=== PATIENT | male | born 1940 | race Caucasian/White ===

== ENCOUNTER → 2024-03-26 10:05 | Outpatient (REF) | payer OTHER, SELFPAY | LOC: RCS 10:05 | PROVIDERS: ATTENDING PHYSICIAN Internal Medicine Cardiovascular Disease; FAMILY PHYSICIAN Family Medicine; REFERRING PHYSICIAN Internal Medicine Cardiovascular Disease | DX: I48.21 Permanent atrial fibrillation (principal) | CPT/HCPCS: 93306 ==

== ENCOUNTER 2024-09-28 13:03 | Emergency (ER) | payer OTHER, SELFPAY ==
[2024-09-28 13:07] VITALS: BP 181/91
--- NOTE | 2024-09-28 14:37 | ED.GENMED ---
History of Present Illness
General
Chief Complaint: Male Genito-Urinary Symptoms
Source: patient
Exam Limitations: none
Time Seen by Provider: 09/28/24 14:13
Nursing documentation reviewed up to this point in time: agreed with
History of Present Illness
History of Present Illness:
Patient is an 84-year-old male on Eliquis for A-fib presents to the ER for hematuria. Patient reports 1 hour prior to arrival he urinated blood in the toilet spontaneously. He had no dysuria. No blood clots.
He denies any abdominal pain nausea vomiting fever chills back pain.
He has no prior history of hematuria.
He does have a urologist he follows at [place].
Past History
Past History
ED Past Medical History: None
ED Past Surgical History: Urological
Social History
Tobacco: Non-smoker
Alcohol: Daily
Personal:
Living: with family
Employment: Retired
Review of Systems
Review of Systems
Allergies reviewed?: Yes
All Other Systems: ROS reviewed and negative except as documented in HPI and ROS
Constitutional: Reports no symptoms; Denies fever, fatigue or chills
Respiratory: Reports no symptoms
Cardiac: Reports no symptoms
ABD/GI: Reports no symptoms
: Reports bleeding; Denies frequency or difficulty voiding
Musculoskeletal: Reports no symptoms
Skin: Reports no symptoms
Neurological: Reports no symptoms
Psychiatric: Reports no symptoms
Phy Exam
General Physical Exam
General Presentation: no apparent distress
General age: appears stated age
General Skin: warm and dry
General Habitus: normal
General Mental: alert
General Hydration: appears well hydrated
Cardiovascular Exam
Cardiovascular Exam: regular rate/rhythm, no murmur and normal peripheral pulses
Pulmonary Exam
Pulmonary Exam: lungs clear and no respiratory distress
Gastrointestinal Exam
Gastrointestinal Exam: non tender and soft
Neurological Exam
Neurological Exam: alert and oriented x3
Musculoskeletal Exam
Musculoskeletal Exam: full ROM
Skin Exam
Skin Exam: normal color and warm/dry
Psychiatric Exam
Psychiatric Exam: normal mood/affect
Course
Orders/Labs/Results
Orders:
Orders
09/28/24 14:35
Urinalysis Reflex To Culture Urgent
Date Specimen was Collected: 09/28/24
Time Specimen was Collected: 14:34
Urine Microscopic Reflex Cult Urgent
09/28/24 14:47
IV Insert/Care/Rem.- Treatment PRN
09/28/24 15:05
Complete Blood Count/With Diff Urgent
Comprehensive Metabolic Panel Urgent
09/28/24 17:37
UA Reflex to Culture [Urinalysis Reflex To Culture] Urgent
Date Specimen was Collected: 09/28/24
Time Specimen was Collected: 17:35
Urine Microscopic Reflex Cult Urgent
Urine Culture Urgent
FADUMO Source: U
Specimen Description:
Date Specimen was Collected: 09/28/24
Time Specimen was Collected: 17:35
Abnormal Lab Results
09/28/24 09/28/24 09/28/24
14:35 15:05 17:37
WBC 4.6 L 10^3/uL
(4.8-10.8)
RBC 4.31 L 10^6/uL
(4.70-6.10)
MCH 31.8 H pg
(27.0-31.0)
Absolute Lymphs (auto) 0.9 L 10^3/uL
(1.2-3.4)
Lymphocytes % 18.8 L %
(20.5-51.1)
Total Bilirubin 1.5 H mg/dl
(0.2-1.3)
Ur Occult Blood Reflex 4+ A 4+ A
(Negative) (Negative)
Leukocyte Esterase Rfl 1+ A
(Negative)
Urine RBC >100 A /HPF >100 A /HPF
(0-2) (0-2)
Urine Bacteria (Reflex) Few A
(Negative)
Urine Albumin (Reflex) 4+ A 3+ A
(Neg - Trace) (Neg - Trace)
09/28/24 15:05
09/28/24 15:05
Vital Signs
Initial and Last Documented VS:
Initial Vital Signs
Temp Pulse Resp BP Pulse Ox
98.3 F 70 16 181/91 98
09/28/24 13:07 09/28/24 13:07 09/28/24 13:07 09/28/24 13:07 09/28/24 13:07
Last Documented Vital Signs
Temp Pulse Resp BP Pulse Ox
98.1 F 61 18 122/69 98
09/28/24 15:13 09/28/24 15:13 09/28/24 15:13 09/28/24 17:00 09/28/24 17:15
Kettle Worker consulted with Physician
Kettle Worker consulted with physician?: Yes
Name of Physician Consulted: Dr Cooper
MDM/Problems Addressed
Differential Diagnosis Includes:
Not limited to hematuria, UTI
MDM/Problems Addressed:
Patient is an 84-year-old male on Eliquis for A-fib presenting for hematuria. He reports hematuria started today no clots. He had no dysuria abdominal pain nausea vomiting back pain fever chills. Patient is well-appearing on exam.
White blood cell count is 4.6 hemoglobin is stable patient is afebrile normal kidney function.
Patient's hematuria has improved since he has been here .
He is well appearing and has no complaints of urinating. 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
since hematuria is improving, we will have patient continue Eliquis however prompt follow-up by his urologist at [place]. I did review with patient to return if any worsening of symptoms.
will send repeat urine since urine has improved to ensure no infection we will hold off on antibiotics at this time
*Pulse Oximetry
Patient hypoxic: no
*Critical Care Note
Total Time (30-74mins, 75-104mins- exclusive of procedures): Not Applicable
ED Attending Note
-
Portions of this chart may have been created with voice recognition software.� Occasional wrong word or��sound alike� substitutions may have occurred due to the inherent limitations of voice recognition software.
Discharge Plan
Departure
Patient Disposition: Home (Routine Discharge)
Date of Disposition: 09/28/24
Time of Disposition: 17:36
Patient with high blood pressure during this ER visit?: Yes
Condition: Fair
Covid-19: Not Applicable
Discharge Problem:
Hematuria
Instructions: Blood in the Urine (Hematuria), Adult (DC), BLOOD PRESSURE
Prescriptions:
No Action
Eliquis 5 MG tablet
5 mg PO BID Qty: 60 0RF
diltiazem HCl 180 mg Capsule,Extended Release 24hr
180 mg PO DAILY
triamcinolone acetonide 0.1 % Cream
1 applic TOPICAL DAILY
Patient Comments:
09/28/24: Apply to the back. Patient takes 2 weeks on and 1 week off. Currently is on the on week.
lisinopril 10 mg Tablet
10 mg PO HS
azelastine 137 mcg (0.1 %) [place],Non-Aerosol
1 spray INTRANASAL DAILY
fluticasone propionate 50 mcg/actuation [place],Suspension
1 spray INTRANASAL DAILY
Metamucil 3.4 gram/5.4 gram Powder
2 tsp PO DAILY
Referrals:
Bandar Cruz DO [Family Provider] -
Activity Restrictions/Additional Instructions:
Please follow-up with your urologist in the next several days call Tuesday to make an appointment. Stay well-hydrated. You may continue Eliquis however return if any worsening of symptoms including increased blood in urine clots difficulty
urinating pain nausea vomiting back pain fever chills
Interventions
Interventions:
*Risk Screen - Suicide Last Done: 09/28/24 13:07
*General Assessment Last Done: 09/28/24 14:59
*Neglect/Abuse Screening Last Done: 09/28/24 13:07
*ED- Fall Risk Assessment Last Done: 09/28/24 14:59
*ED COVID-19 Vaccine History Last Done: 09/28/24 14:59
*Nursing Disposition Last Done: 09/28/24 17:43
ED-Male Genitourinary Assessment Last Done: 09/28/24 14:57
Discharge Date and Time
Discharge Date/Time: 09/28/24 17:44
Print Language: VIET[place]ESE
[2024-09-28 14:53] LABS: Urine Albumin 4+ (Neg - Trace); Urine Bilirubin Negative (Negative); Urine Character Bloody (Clear); Urine Color Red; Urine Glucose Negative (Negative); Urine Ketone Negative (Negative); Urine Leukocyte Negative (Negative); Urine Nitrite Negative (Negative); Urine Occult Blood 4+ (Negative); Urine Urobilinogen Negative (Neg - 1+)
[2024-09-28 15:00] VITALS: BP 137/71; BMI 19.6
[2024-09-28 15:08] LABS: Urine Red Blood Cell >100 /HPF (0-2)
[2024-09-28 15:13] VITALS: BP 137/71
[2024-09-28 15:14] LABS: % Basophils 0.2 % (0-2); % Eosinophils 2.6 % (0-6); % Immature Granulocytes 0.2 % (0-0.5); % Lymphocytes 18.8 % (20.5-51.1); % Monocytes 9.2 % (1.7-9.3); Absolute Eosinophils 0.1 10^3/uL (0-0.7); Absolute Lymphocytes 0.9 10^3/uL (1.2-3.4); Absolute Monocytes 0.4 10^3/uL (0.1-0.6); Absolute Neutrophils 3.2 10^3/uL (1.4-6.5); Hematocrit 39.8 % (39.0-52.0); Hemoglobin 13.7 g/dL (13.0-18.0); Mean Corp Hgb Conc. 34.4 g/dL (33.0-37.0); Mean Corpuscular Hgb 31.8 pg (27.0-31.0); Mean Corpuscular Volume 92.3 fL (80.0-94.0); Mean Platelet Volume 9.1 fL (7.4-10.4); Nucleated Red Blood Cells % 0 % (-); Platelet Count 152 10^3/uL (130-400); Red Blood Cell Count 4.31 10^6/uL (4.70-6.10); Red Cell Dist. Width 12.2 % (11.5-14.5); White Blood Cell Count 4.6 10^3/uL (4.8-10.8)
[2024-09-28 15:30] LABS: ALT (SGPT) 29 U/L (0-50); AST (SGOT) 34 U/L (17-59); Albumin 4.4 g/dl (3.5-5.0); Alkaline Phosphatase 93 U/L (38-126); Blood Urea Nitrogen 15 mg/dl (9-20); Calcium 9.3 mg/dl (8.4-10.2); Carbon Dioxide 30 mmol/L (22-30); Chloride 100 mmol/L (98-107); Estimated Creatinine Clearance 64 ml/min; Glucose 96 mg/dl (70-99); Sodium 136 mmol/L (135-145); Total Bilirubin 1.5 mg/dl (0.2-1.3); Total Protein 7.2 g/dl (6.3-8.2); eGFR > 60.00
[2024-09-28 16:00] VITALS: BP 139/70
[2024-09-28 17:00] VITALS: BP 122/69
[2024-09-28 17:54] LABS: Urine Albumin 3+ (Neg - Trace); Urine Bilirubin Negative (Negative); Urine Character Bloody (Clear); Urine Color Red; Urine Glucose Negative (Negative); Urine Ketone Negative (Negative); Urine Leukocyte 1+ (Negative); Urine Nitrite Negative (Negative); Urine Occult Blood 4+ (Negative); Urine Urobilinogen Negative (Neg - 1+); Urine pH 6.5 (5.0-9.0)
[2024-09-28 19:25] LABS: Urine Red Blood Cell >100 /HPF (0-2); Urine Squamous Cell 0-2 /LPF (Few)
[2024-09-28 19:26] LABS: Urine Bacteria Few (Negative)
== END 2024-09-28 17:44 | disposition home or self-care (01) ==
LOC: EMR 13:03
PROVIDERS: Nurse Practitioner; EMERGENCY PHYSICIAN Student in an Organized Health Care Education/Training Program; FAMILY PHYSICIAN Family Medicine
DX: R31.9 Hematuria, unspecified (principal); I48.91 Unspecified atrial fibrillation; Z79.01 Long term (current) use of anticoagulants
CPT/HCPCS: 99283; 80053; 81003; 81015; 85025; 87086

== ENCOUNTER → 2024-10-29 11:22 | Outpatient (REF) | payer OTHER, SELFPAY | LOC: RAD 11:22 | PROVIDERS: ATTENDING PHYSICIAN Nurse Practitioner; FAMILY PHYSICIAN Family Medicine | DX: R31.0 Gross hematuria (principal) | CPT/HCPCS: 74178; Q9967 ==

== ENCOUNTER 2024-11-26 06:00 | Day surgery (SDC) | payer OTHER, SELFPAY ==
[2024-11-26] VITALS (8 sets, daily range): BP systolic 14–176; BP diastolic 61–94; BMI 20.4
[2024-11-26] MEDS: TYLENOL 1000 MG PO (06:30)
[2024-11-26] MEDS: NORMOSOL-R/PLASMALYTE-A 1000 IV (06:31)
[2024-11-26] MEDS: HEPARIN 5000 UNITS SC (06:31)
--- NOTE | 2024-11-26 08:39 | OR.RPT ---
Addendum entered and electronically signed by Les Huerta MD 11/26/24 09:01:
The assistance of Jeff ARANA was required due to the complexity of the procedure. During the procedure she assisted with retraction, resection, and closure of the wound.
Original Note:
Operative Report
Operative Report
Primary Surgeon: Deanna
Assisting: Jeff ARANA
Pre-op Diagnosis: Right inguinal hernia
Post-op Diagnosis: Same
Procedure Performed: Open repair right inguinal hernia (atif)
Anesthesia Type: MAC local
Specimen / Cultures: None
Estimated Blood Loss: 2cc
Complications: None immediate
Operative Findings: Small indirect defect, no cord lipoma; 3'x6' bard mesh trimmed to size
Date of Surgery: 11/26/24
Indications: This 84M developed a symptomatic right inguinal hernia and open repair was elected, given history of prostatectomy and eliquis use.
PROCEDURE: After informed consent was obtained, the patient was marked, brought to the operative suite and placed supine on the operating table. The patient was sedated, prepped and draped in the usual sterile manner and an adequate local
anesthetic was administered using a combination of Marcaine and Lidocaine.
An oblique incision was made about 3cm superior to the inguinal ligament with a #10 blade and carried down to the external oblique aponeurosis with electrocautery. The external oblique was incised with a #15 blade and then divided parallel to its
fibers with metzenbaum sukhi, elevating it off the deeper layers bluntly, moving from lateral to medial until the external ring was divided. The ilioinguinal nerve was not definitively identified. The cord was bluntly dissected off the pubic
tubercle and encircled with a viviane drain. The cremasteric fibers were taken with cautery. The sac was identified and bluntly dissected away from the cord structures. The sac was dissected back to the internal ring until preperitoneal fat was
visible. The sac was twisted and suture ligated and redundant sac was excised with cautery. The stump retracted through the internal ring nicely. The mesh was then trimmed to size and secured to the pubic tubercle with 2-0 prolene suture. The
inferior edge was secured to the shelving edge of the inguinal ligament with interrupted 2-0 prolene sutures. The superior edge was secured to the conjoint tendon in similar fashion. The tails were crossed over the cord and secured to each other in
similar fashion. The mesh laid flat without folding or curling. Hemostasis was assured. The external oblique aponeurosis was closed with running 3-0 vicryl suture, using small bites and taking care not to catch any deeper structures in the closure.
Frannie's fascia was closed in similar fashion. The skin was approximated with 3-0 Vicryl deep dermal interrupted sutures and 4-0 monocryl suture in a subcuticular fashion. Topical skin glue was then applied. All surgical counts were reported as
correct.
The patient tolerated the procedure well and was taken to the PACU in stable condition.
== END 2024-11-26 10:05 | disposition home or self-care (01) ==
LOC: SDS 06:00
PROVIDERS: ATTENDING PHYSICIAN Surgery
DX: K40.90 Unilateral inguinal hernia, without obstruction or gangrene, not specified as recurrent (principal)
CPT/HCPCS: 49505; C1781